=== PATIENT | male | born 1995 | race Caucasian/White ===

== ENCOUNTER 2021-11-15 14:24 | Emergency (ER) | payer OTHER, SELFPAY ==
[2021-11-15 14:30] VITALS: BP 149/81; PULSE 84; RESP 14; TEMP 37.1; O2SAT 100
[2021-11-15 14:38] VITALS: BP 149/81; PULSE 84; RESP 14; TEMP 37.1; O2SAT 100
--- NOTE | 2021-11-15 14:47 | ED.SKABFB ---
HPI - Skin/Abscess/Foreign Bdy General Chief complaint: Skin/Abscess/Foreign Body Stated complaint: possible staff boils Time Seen by Provider: 11/15/21 14:40 Source: patient Mode of arrival: ambulatory Limitations: no limitations History of Present Illness HPI narrative: Mr. Lebron is a 26-year-old male patient presenting to the clinic today with complaints of possible staph infection. He reports that he seen his primary care provider 4 days ago and he was started on some Bactrim and mupirocin cream. He reports that he has 1 area to his left lateral thigh that appears to be getting worse. States that it is draining white bloody discharge. He has taken 4 days worth of medications and some of the areas have improved but this 1 has become more tender and draining. Related Data Home Medications Medication Instructions Recorded Confirmed mupirocin 2 % ointment topical kit 1 applic topical TID 11/15/21 11/15/21 sulfamethoxazole 800 1 tablet PO Q12H 11/15/21 11/15/21 mg-trimethoprim 160 mg tablet Allergies Allergy/AdvReac Type Severity Reaction Status Date / Time No Known Allergies Allergy Verified 11/15/21 14:37 Review of Systems Review of Systems: Pertinent positives per HPI. Patient denies any fever, chills, rash, headache, visual changes, dizziness, cough, runny nose, sore throat, shortness of breath, chest pain, palpitations, nausea, vomiting, diarrhea, constipation, abdominal pain, or any urinary issues. PMFSH Comments At the time of my signature, I reviewed and agree with the nursing past medical, surgical, social, and family history. There is no relevant family history pertinent to the patient complaint. Exam Narrative: General: Well-developed, well nourished, in no apparent distress Head: Normocephalic, atraumatic. Cardio: Regular rate and rhythm, s1 and s2 normal, no murmur appreciated. Resp: Clear to auscultation bilaterally, no rhonchi, rales, wheezing or rubs. Integumentary: [place], warm, and dry, golf ball sized induration,redness, with nonfluctuant abscess to the left lateral hip. Bloody white discharge expressed from the site. Course Course Emergency Course: Portions of this record may have been created with voice recognition software. Level of Care: Express Care Visit Vital Signs Vital signs: Vital Signs Temperature 37.1 C 11/15/21 14:30 Pulse Rate 84 11/15/21 14:30 Respiratory Rate 14 11/15/21 14:30 Blood Pressure 149/81 H 11/15/21 14:30 Pulse Oximetry 100 11/15/21 14:30 Oxygen Delivery Room Air 11/15/21 14:30 Temperature 37.1 C 11/15/21 14:38 Pulse Rate 84 11/15/21 14:38 Respiratory Rate 14 11/15/21 14:38 Blood Pressure 149/81 H 11/15/21 14:38 Pulse Oximetry 100 11/15/21 14:38 Oxygen Delivery Room Air 11/15/21 14:38 Vital signs reviewed Discharge Plan Discharge Clinical Impression: Abscess of skin or subcutaneous tissue Patient Disposition: Home, Self-Care Condition: Stable Instructions: Antibiotic Form, Abscess (ED) Additional Instructions: Abscess is not fluctuant- incision and drainage not warranted at this time. Continue Bactrim and I will add cephalexin to the medication regimen. Warm compresses to the left lateral thigh abscess Tylenol/Motrin as needed for pain or fever. Keep covered if draining. Follow-up with your PCP in 3 to 5 days if symptoms persist or sooner if they worsen Prescriptions: New cephalexin 500 mg capsule 500 mg PO Q8H 7 Days Qty: 21 0RF No Action sulfamethoxazole-trimethoprim 800-160 mg Tablet 1 tablet PO Q12H mupirocin 2 % Ointment Kit 1 applic TOPICAL TID Follow-up/Referrals: PHYSICIAN,[employer] [Primary Care Provider] - Time of Disposition: 14:51 Quality NIHSS Nursing Documentation ED NIHSS nursing documentation: reviewed/agree
== END 2021-11-15 14:55 | disposition home or self-care (01) ==
PROVIDERS: Emergency Provider Nurse Practitioner Family
DX: L02.416 Cutaneous abscess of left lower limb (principal); R03.0 Elevated blood-pressure reading, without diagnosis of hypertension
CPT/HCPCS: 99203; G0463